=== PATIENT | female | born 1970 | race Caucasian/White ===

== ENCOUNTER 2017-01-20 18:31 | Emergency (ER) | payer SELFPAY ==
--- NOTE | ~2017-01-20 | ER ---
PATIENT'S NAME: DANIEL [facility] AGE: 47 Y [address] ROOM: [place] [id number] LOCATION: [facility] ADMIT DATE: 01/20/2017 ER/Outpatient Report DISCHARGE DATE: 01/20/2017 FAMILY PHYSICIAN: PHYSICIAN, EILEEN ATTENDING PHYSICIAN: Davida Farrell Time of Patient's Arrival: 1831 hours. Time of Patient's Evaluation: 1915 hours. CHIEF COMPLAINT: Back pain. HISTORY OF PRESENT ILLNESS: This is a 47-year-old female who presents to the ER with low back pain. She states it started around midnight last night and has progressively gotten worse. She states that yesterday she did not really feel very well and she thought maybe she was running a fever, but did not check it. She states her niece has been sick at home, so she just thought she was getting what she has. She states she does not know of any injury to the back, but states that she is having muscular spasm across her lower back. She denies any troubles with urination or troubles with bowel movements. She states that she had troubles with her back in the past, but never like this. ALLERGIES: NO KNOWN ALLERGIES. MEDICATIONS: None. PAST MEDICAL HISTORY: Negative. PAST SURGERIES: Tubal ligation, , and cholecystectomy. SOCIAL HISTORY: She smokes 1 pack a day for the last 35 years. She denies any drug or alcohol use. REVIEW OF SYSTEMS: All systems are reviewed and are negative with the exception of those discussed in the HPI. PHYSICAL EXAMINATION: VITAL SIGNS: Height 5 feet 5 inches stated, weight 94.6 kg taken, blood PATIENT'S NAME: DANIEL [facility] AGE: 47 Y [address] ROOM: [place] [address] LOCATION: ED ADMIT DATE: 01/20/2017 ER/Outpatient Report DISCHARGE DATE: 01/20/2017 FAMILY PHYSICIAN: PHYSICIAN, EILEEN ATTENDING PHYSICIAN: Davida Farrell pressure is 144/96, pulse 91, respirations 18, temperature 98.2 degrees tympanically, and saturations 96% on room air. Marisa Coma Score is 15. GENERAL: Alert, calm, well-developed female, in [id number] distress. HEENT: Head: Normocephalic. Eyes: Pupils are equal and reactive to light. Does display moist mucous membranes. LUNGS: Clear to auscultation bilaterally. No wheezes or crackles. HEART: Regular rate and rhythm. ABDOMEN: Soft, nontender. She has good bowel sounds throughout. No masses are palpated. MUSCULOSKELETAL: She does have tenderness across her lumbar spine. She is having some muscular spasm noted to her paraspinous muscles bilaterally, lower back. NEURO: Cranial nerves 2 through 12 grossly intact. Gait is steady, but she has a shuffling gait. LABORATORY DATA: CBC: White count is 10.1, hemoglobin is 14.7, platelets are 361, and ANC is 6.9. CMS was unremarkable. Urinalysis was negative for any infection. There is no blood in her urine. IMPRESSION: Low back pain, muscular spasms. ASSESSMENT AND PLAN: We did give her a shot of Toradol 60 mg IM along with Valium 5 mg IM, which did improve her pain. I will dismiss her to home with prescription for Valium and prednisone to use as directed. She needs to ice, monitor her symptoms, do some gentle stretches, and follow up with her primary care physician if she does not improve. The patient understands and agrees with care. ISHAN GREEN PA-C FOR MD LYRIC CANAS/arturo /[id number] d: t: 01/23/17 1158, OUTPATIENT REPORT
[2017-01-20 19:34] LABS: BILIRUBIN URINE NEGATIVE (NEGATIVE); BLOOD URINE NEGATIVE /UL (NEGATIVE); GLUCOSE URINE NEGATIVE (NEGATIVE); KETONE URINE NEGATIVE (NEGATIVE); LEUKOCYTES URINE NEGATIVE /UL (NEGATIVE); NITRITE URINE NEGATIVE (NEGATIVE); PROTEIN URINE NEGATIVE (NEGATIVE); SPEC GRAVITY URINE 1.025 (1.003-1.035); UROBILINOGEN URINE NORMAL (NORMAL)
[2017-01-20 19:40] LABS: COLOR URINE YELLOW (YELLOW); TURBIDITY URINE CLEAR (CLEAR)
[2017-01-20 19:46] LABS: BASOPHIL # 0.1 K/uL (0.0-0.2); BASOPHIL % 0.5 %; EOSINOPHIL # 0.1 K/uL (0.0-0.5); EOSINOPHIL % 0.8 %; HEMATOCRIT 44.6 % (33.0-46.0); HEMOGLOBIN 14.7 g/dL (10.0-15.0); IMMATURE GRANULOCYTE % 0.2 %; LYMPHOCYTE # 2.5 K/uL (0.8-4.0); MCH 28.9 pg (27.0-34.0); MCV 87.8 fl (83.0-98.0); MONOCYTE # 0.6 K/uL (0.0-1.0); MONOCYTE % 5.7 %; NEUTROPHIL # (ANC) 6.9 K/uL (1.8-7.8); NEUTROPHIL % 67.8 %; NRBC % 0 /100WBC (0-0.00); PLATELET COUNT 361 K/uL (150-450); RBC 5.08 M/uL (3.50-5.50); RDW-CV 13.2 % (11.9-14.6); WBC 10.1 K/uL (4.0-11.0)
[2017-01-20 20:06] LABS: ALBUMIN 3.8 gm/dL (3.5-5.0); ALK PHOS 88 IU/L (33-138); ALT 76 IU/L (12-78); ANION GAP 10.1 (10.0-19.0); AST 39 IU/L (10-40); BLOOD UREA NITROGEN 6 mg/dL (6-24); CALCIUM 8.8 mg/dL (8.5-10.5); CHLORIDE 108 mMol/L (96-110); CO2 24 mMol/L (22-32); CREATININE 0.8 mg/dL (0.5-1.1); ESTIMATED GFR (MDRD EQUATION) > 60; POTASSIUM 4.1 mMol/L (3.7-5.1); SODIUM 138 mMol/L (135-145); TOTAL BILIRUBIN 0.2 mg/dL (0.0-1.5); TOTAL PROTEIN 8.2 g/dL (6.0-8.4)
== END 2017-01-20 20:30 | disposition disaster alternative care site (69) ==
LOC: GMED 18:31
PROVIDERS: Family Medicine
DX: M62.830 Muscle spasm of back (principal); F17.210 Nicotine dependence, cigarettes, uncomplicated; Z98.890 Other specified postprocedural states; Z90.49 Acquired absence of other specified parts of digestive tract; Z98.51 Tubal ligation status
CPT/HCPCS: J1885; J3360